=== PATIENT | male | born 1960 | race Caucasian/White ===

== ENCOUNTER 2018-05-13 13:40 | Outpatient (CLI) | payer MEDICAID, SELFPAY ==
--- NOTE | 2018-05-13 11:28 | DI.RAD_ITS ---
SYMPTOMS/DIAGNOSIS: CHRONIC RIGHT HIP PAIN, M25.551, OTHER CHRONIC PAIN, G89.29 RIGHT HIP AND PELVIS: Two views. No priors. There is mild joint space narrowing of the right hip joint and mild spurring of the right femur. The joint spaces otherwise are well maintained. The bones are intact and normally mineralized. The sacroiliac joints and symphysis pubis are intact. There is partial lumbarization of the SI segment of the sacrum. The soft tissues are unremarkable. 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
== END 2018-05-13 14:00 ==
PROVIDERS: PCP Family Medicine; Visit Provider Family Medicine
DX: M25.551 Pain in right hip (principal); M16.11 Unilateral primary osteoarthritis, right hip; G89.29 Other chronic pain
CPT/HCPCS: 73502

== ENCOUNTER 2018-05-26 11:11 | Outpatient (CLI) | payer MEDICAID, SELFPAY ==
[2018-05-26 13:01] LABS: Abs Immature Grans 0.01 k/cumm (0.0-0.09); Absolute Basophil Count 0.02 k/cumm (0.0-0.2); Absolute Eosinophil Count 0.19 k/cumm (0.0-0.7); Absolute Lymphocyte Count 1.83 k/cumm (1.2-3.4); Absolute Monocyte Count 0.65 k/cumm (0.11-0.7); Absolute Neutrophil Count 3.34 k/cumm (1.2-6.7); Basophils % 0.3; Eosinophils % 3.1; HCT 42.3 % (40.0-50.0); Immature Grans % 0.2; Lymphocytes % 30.3; Mean Corp. HGB Concentration 33.1 g/dL (32.0-36.0); Mean Corpuscular Volume 96.8 fL (80-95); Mean Platelet Volume 9.4 fL (8.0-11.0); Monocytes % 10.8; Neutrophils % 55.3; Platelet Count 224 x1000/uL (130-400); RBC 4.37 m/cumm (4.50-6.00); RBC Distribution Width 13.3 % (11.8-14.1); White Blood Cell Count 6.04 k/cumm (4.4-10.8)
[2018-05-26 13:40] LABS: ALT 30 U/L (12-78); AST 22 U/L (15-37); Albumin 3.9 g/dL (3.4-5.0); Alkaline Phosphatase 95 U/L (46-116); Anion Gap 4.6 mmol/L (3-11); BUN 21 mg/dL (7-18); Bilirubin, Total 0.4 mg/dL (0.2-1.0); CO2 30.4 mmol/L (21.0-32.0); Calcium 9.6 mg/dL (8.5-10.1); Chloride 103 mmol/L (98-107); Glucose 90 mg/dL (70-100); Sodium 138 mmol/L (136-145); Total Protein 7.3 g/dL (6.4-8.2)
== END 2018-05-26 11:31 ==
PROVIDERS: PCP Family Medicine; Visit Provider Family Medicine
DX: M54.16 Radiculopathy, lumbar region (principal)
CPT/HCPCS: 36415; 80053; 85025

== ENCOUNTER 2018-05-28 10:29 | Outpatient (CLI) | payer MEDICAID, SELFPAY ==
[2018-05-28 12:51] LABS: Potassium 4.3 mmol/L (3.5-5.1)
== END 2018-05-28 10:49 ==
PROVIDERS: Family Medicine; PCP Family Medicine; Visit Provider Family Medicine
DX: I10 Essential (primary) hypertension (principal)
CPT/HCPCS: 84132

== ENCOUNTER 2018-06-05 11:41 | Emergency (ER) | payer MEDICAID, SELFPAY ==
[2018-06-05 11:53] VITALS: BP 161/106; PULSE 63; RESP 18; TEMP 36.8; O2SAT 98
--- NOTE | 2018-06-05 12:21 | W.ED.GENAD ---
Discharge Plan Disposition Patient Disposition: HOME Discharge Details Chief Complaint: Vascular Clinical Impression: Effusion of right knee Primary Care Provider: Petros Basurto ED Provider: Yan Gramajo Home Meds and New Rx's Prescriptions: No Action hydrocodone-acetaminophen 5-325 mg tablet 1 tab PO Q6H PRN (Reason: pain) Qty: 24 RF: 0 Discharge Instructions Instructions: Swollen Knee Joint (ED) Additional Instructions: Please use marisa wrap and crutches. You may bear weight as tolerated. Please follow-up with orthopedics. Call for an appointment. Please contact your primary care physician to arrange follow-up. Return to the ER for any worsening or new concerning symptoms. Referrals: [facility] [Provider Group] Petros Basurto [Primary Care Provider] - Discharge Data Discharge Date/Time-TO BE ENTERED AT DEPARTURE: 06/05/18 16:09 Medical Decision Making 57-year-old male with nontraumatic effusion of right knee. X-ray of the right knee reviewed and interpreted by radiology: joint effusion with no sam abnormality. Knee aspiration performed and 74 mL of fluid removed. Sterile dressing applied. Labs reviewed: nl esr, crp and no leukocytosis. Joint fluid has 1265 WBCs. Patient was advised to follow-up with orthopedics. I encouraged him to return for any worsening or new concerning symptoms. HPI General Mode of arrival: ambulatory. Date/Time Provider Initiated Documentation: 06/05/18 12:01. Limitations to Documentation: no limitations. Information obtained by: patient. 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 Patient notes that symptoms started a few weeks ago and were less focal at onset. He was seen by his primary care physician for right leg who performed a hip x-ray that was unremarkable. He is continued to have symptoms and much more localized now in his knee. Pain is moderate to severe with certain positions and activities. Patient denies trauma. He has associated swelling of the knee. No fevers. No rash. Patient notes remote right knee cartilage surgery as a 13yo. Does not have more information on this. Related Data Home Medications Medication Instructions Recorded Confirmed hydrocodone 5 mg-acetaminophen 325 1 tab PO Q6H PRN #24 tab 05/26/18 06/05/18 mg tablet Previous Rx's Medication Instructions Recorded hydrocodone 5 mg-acetaminophen 325 1 tab PO Q6H PRN #24 tab 05/26/18 mg tablet Allergies Allergy/AdvReac Type Severity Reaction Status Date / Time No Known Allergies Allergy Unverified 06/05/18 12:00 General Stated Complaint: Vascular YVES: 3 Review of Systems Review of Systems All systems reviewed & are unremarkable except as noted in HPI and below Constitutional Denies fever(s) Musculoskeletal Reports as per HPI Neurologic Comments: focal area of numbness rt lateral knee PFSH Family History Mother Depression Father Essential hypertension Mental disorder Sister No problems noted. Grandfather Neoplasm Grandfather Neoplasm Grandmother Cerebrovascular accident Grandmother Heart disease Sister No problems noted. Sister No problems noted. Son No problems noted. Daughter No problems noted. 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 pets and animals: Yes pets and animals: cat(s) and dog(s) frequency: daily Smoking/Tobacco Use Status: Current-Occasional tobacco type: cigars alcohol intake: current alcohol intake frequency: a few times a week substance use type: does not use cherry/sikhism: Yarsanism special cherry needs: No Exam Cardio Rate: regular rate Rhythm: regular rhythm Pulses: dorsalis pedis pulses present on the right Neuro General: alert and awake Other: distal RLE sensation and motor intact Extrem Right lower extremity: knee Details: swelling and other (rt knee with large effusion, some warmth, no erythema, limited ROM secondary to discomfort) Course Vital Signs Temperature 36.8 C 06/05/18 11:53 Pulse 63 06/05/18 11:53 Respiratory Rate 18 06/05/18 11:53 Blood Pressure 161/106 H 06/05/18 11:53 Pulse Oximetry 98 06/05/18 11:53 Temperature 36.8 C 06/05/18 11:53 Temperature Source Skin 06/05/18 11:53 Pulse 63 06/05/18 11:53 Respiratory Rate 18 06/05/18 11:53 Respiratory Effort 06/05/18 11:58 Blood Pressure 161/106 H 06/05/18 11:53 Blood Pressure Position Sitting 06/05/18 11:53 Pulse Oximetry 98 06/05/18 11:53 Oxygen Delivery Method Room Air 06/05/18 11:53 Oxygen Flow Rate 0 06/05/18 11:53 Pain Level 8 06/05/18 11:53 Procedures Joint Aspiration/Injection Joint Asp./Inject. 1: Time Out Performed: Yes Side of body: right Joint Aspirated: knee Skin Prep: Povidone-Iodine1% Local Anesthetic: Lidocaine 1% Amount of anesthesia used (mL): 2 Needle Size Used: 18G Fluid Obtained: clear (yellow) Total fluid obtained (mL): 74 Patient Tolerated Procedure: well Complications: none
[2018-06-05] MEDS: Lidocaine/Epinephri/Tetracaine Topical Gel 3 ML (13:00)
[2018-06-05 13:24] LABS: Abs Immature Grans 0.01 k/cumm (0.0-0.09); Absolute Basophil Count 0.01 k/cumm (0.0-0.2); Absolute Eosinophil Count 0.14 k/cumm (0.0-0.7); Absolute Lymphocyte Count 1.63 k/cumm (1.2-3.4); Absolute Monocyte Count 0.63 k/cumm (0.11-0.7); Absolute Neutrophil Count 3.63 k/cumm (1.2-6.7); Basophils % 0.2; Eosinophils % 2.3; HCT 42.9 % (40.0-50.0); HGB 14.4 g/dL (13.5-17.5); Immature Grans % 0.2; Lymphocytes % 26.9; Mean Corp. HGB Concentration 33.6 g/dL (32.0-36.0); Mean Corpuscular Hemoglobin 32.1 pg (27.0-33.0); Mean Corpuscular Volume 95.8 fL (80-95); Monocytes % 10.4; Platelet Count 224 x1000/uL (130-400); RBC 4.48 m/cumm (4.50-6.00); RBC Distribution Width 13.2 % (11.8-14.1); White Blood Cell Count 6.05 k/cumm (4.4-10.8)
[2018-06-05 13:37] LABS: Anion Gap 6.7 mmol/L (3-11); BUN 25 mg/dL (7-18); C-Reactive Protein 0.23 mg/dL (0.0-0.3); CO2 31.3 mmol/L (21.0-32.0); CREATININE 0.91 mg/dL (0.70-1.30); Calcium 9.6 mg/dL (8.5-10.1); Chloride 101 mmol/L (98-107); Glucose 106 mg/dL (70-100); Potassium 4.8 mmol/L (3.5-5.1); Sodium 139 mmol/L (136-145)
--- NOTE | 2018-06-05 14:02 | DI.RAD_ITS ---
SYMPTOMS/DIAGNOSIS: PAIN, EFFUSION RIGHT KNEE: No bony or joint abnormality is demonstrated. A joint effusion is identified.
[2018-06-05] MEDS: Lidocaine 4% Cream 5 GM TUBE TP (14:05)
[2018-06-05 14:35] LABS: ESR 10 MM/HR (1-20)
[2018-06-05 15:28] LABS: Clarity CLEAR; Mononuclear Cells 94 % (0-0); Nucleated Cells 1265 /MM3 (0-0); Polynuclear Cells 6 % (0-0); Source R KNEE
--- NOTE | 2018-06-05 15:45 | ED.GENADUL_ITS ---
Discharge Plan Disposition Patient Disposition: HOME Discharge Details Chief Complaint: Vascular Clinical Impression: Effusion of right knee Primary Care Provider: Petros Basurto ED Provider: Yan Gramajo Home Meds and New Rx's Prescriptions: No Action hydrocodone-acetaminophen 5-325 mg tablet 1 tab PO Q6H PRN (Reason: pain) Qty: 24 RF: 0 Discharge Instructions Instructions: Swollen Knee Joint (ED) Additional Instructions: Please use marisa wrap and crutches. You may bear weight as tolerated. Please follow-up with orthopedics. Call for an appointment. Please contact your primary care physician to arrange follow-up. Return to the ER for any worsening or new concerning symptoms. Referrals: [facility] [Provider Group] Petros Basurto [Primary Care Provider] - Discharge Data Discharge Date/Time-TO BE ENTERED AT DEPARTURE: 06/05/18 16:09 Medical Decision Making 57-year-old male with nontraumatic effusion of right knee. X-ray of the right knee reviewed and interpreted by radiology: joint effusion with no sam abnormality. Knee aspiration performed and 74 mL of fluid removed. Sterile dressing applied. Labs reviewed: nl esr, crp and no leukocytosis. Joint fluid has 1265 WBCs. Patient was advised to follow-up with orthopedics. I encouraged him to return for any worsening or new concerning symptoms. HPI General Mode of arrival: ambulatory . Date/Time Provider Initiated Documentation: 06/05/18 12:01 . Limitations to Documentation: no limitations . Information obtained by: patient . 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 Patient notes that symptoms started a few weeks ago and were less focal at onset. He was seen by his primary care physician for right leg who performed a hip x-ray that was unremarkable. He is continued to have symptoms and much more localized now in his knee. Pain is moderate to severe with certain positions and activities. Patient denies trauma. He has associated swelling of the knee. No fevers. No rash. Patient notes remote right knee cartilage surgery as a 13yo. Does not have more information on this. Related Data Home Medications Medication Instructions Recorded Confirmed hydrocodone 5 mg-acetaminophen 325 1 tab PO Q6H PRN #24 tab 05/26/18 06/05/18 mg tablet Previous Rx's Medication Instructions Recorded hydrocodone 5 mg-acetaminophen 325 1 tab PO Q6H PRN #24 tab 05/26/18 mg tablet Allergies Allergy/AdvReac Type Severity Reaction Status Date / Time No Known Allergies Allergy Unverified 06/05/18 12:00 General Stated Complaint: Vascular YVES: 3 Review of Systems Review of Systems All systems reviewed & are unremarkable except as noted in HPI and below Constitutional Denies fever(s) Musculoskeletal Reports as per HPI Neurologic Comments: focal area of numbness rt lateral knee PFSH Family History Mother Depression Father Essential hypertension Mental disorder Sister No problems noted. Grandfather Neoplasm Grandfather Neoplasm Grandmother Cerebrovascular accident Grandmother Heart disease Sister No problems noted. Sister No problems noted. Son No problems noted. Daughter No problems noted. 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 pets and animals: Yes pets and animals: cat(s) and dog(s) frequency: daily Smoking/Tobacco Use Status: Current-Occasional tobacco type: cigars alcohol intake: current alcohol intake frequency: a few times a week substance use type: does not use cherry/sabianist: Mormon special cherry needs: No Exam Cardio Rate: regular rate Rhythm: regular rhythm Pulses: dorsalis pedis pulses present on the right Neuro General: alert and awake Other: distal RLE sensation and motor intact Extrem Right lower extremity: knee Details: swelling and other (rt knee with large effusion, some warmth, no erythema, limited ROM secondary to discomfort) Course Vital Signs Temperature 36.8 C 06/05/18 11:53 Pulse 63 06/05/18 11:53 Respiratory Rate 18 06/05/18 11:53 Blood Pressure 161/106 H 06/05/18 11:53 Pulse Oximetry 98 06/05/18 11:53 Temperature 36.8 C 06/05/18 11:53 Temperature Source Skin 06/05/18 11:53 Pulse 63 06/05/18 11:53 Respiratory Rate 18 06/05/18 11:53 Respiratory Effort 06/05/18 11:58 Blood Pressure 161/106 H 06/05/18 11:53 Blood Pressure Position Sitting 06/05/18 11:53 Pulse Oximetry 98 06/05/18 11:53 Oxygen Delivery Method Room Air 06/05/18 11:53 Oxygen Flow Rate 0 06/05/18 11:53 Pain Level 8 06/05/18 11:53 Procedures Joint Aspiration/Injection Joint Asp./Inject. 1: Time Out Performed: Yes Side of body: right Joint Aspirated: knee Skin Prep: Povidone-Iodine1% Local Anesthetic: Lidocaine 1% Amount of anesthesia used (mL): 2 Needle Size Used: 18G Fluid Obtained: clear (yellow) Total fluid obtained (mL): 74 Patient Tolerated Procedure: well Complications: none
== END 2018-06-05 16:09 | disposition home or self-care (01) ==
PROVIDERS: Emergency Provider Student in an Organized Health Care Education/Training Program; PCP Family Medicine
DX: M25.461 Effusion, right knee (principal)
CPT/HCPCS: 20610; 36415; 73562; 80048; 85652; 85025; 86140; 87070; 87205; 89051; 89060; E0114

== ENCOUNTER 2020-11-22 12:59 | Outpatient (REF) | payer MEDICAID, SELFPAY ==
[2020-11-22 20:53] LABS: Calculated LDL 169 mg/dL (<100); Cholesterol 292 mg/dL (<200); Glucose 89 mg/dL (74-106); HDL Cholesterol 114 mg/dL (40-60); Triglyceride 45 mg/dL (<150)
[2020-11-23 17:13] LABS: PSA, Screening 1.8 ng/mL (0.0-4.5)
== END 2020-11-22 13:00 | disposition home or self-care (01) ==
LOC: LBN 12:59
PROVIDERS: PCP Family Medicine; Visit Provider Family Medicine
DX: E78.5 Hyperlipidemia, unspecified (principal); R73.9 Hyperglycemia, unspecified; Z12.5 Encounter for screening for malignant neoplasm of prostate
CPT/HCPCS: 80061; 82947; 84153

== ENCOUNTER 2022-03-02 01:26 | Outpatient (CLI) | payer MEDICAID, SELFPAY ==
--- OUTSIDE RECORDS SUMMARY | 2022-03-02 01:28 | XMS_ITS | Encounter Summary ---
:1960 Author Organization [facility] Address [address] [place] [address] Care Team Providers Name Role Phone Unknown, Provider Primary Care Provider Encounter Details Date Type Department Care Team Description 08/07/2011 Results Only [facility] Armin Murrieta, DO [phone] [facility] [place], [place] [id number] (Wo rk) Social History Tobacco Use Types Packs/Day Years Used Date Never Assessed Sex Assigned at Date Recorded Not on file documented as of this encounter Plan of Treatment Not on filedocumented as of this encounter Procedures Procedure Name Priority Date/Time Associated Diagnosis Comme [facility] SURGICAL PATHOLOGY Routine 08/07/2011 0:00 EST Re sults for this procedure are i n the results section. documented in this encounter Results SURGICAL PATHOLOGY (08/07/2011 0:00 EST) Pathology Report: SURGICAL PATHOLOGY REPORT [facility] Reports generated via electronic interface contain salomon ginal data; LAB however they are lacking the format of the original re port. Caution should be taken when reading/interpreting unfo rmatted reports. Name: ? DONYA MCNAIR ? Accession #: ? [id number] ? : ? 1960 (Age: 50) ??M ? Collect Date: ? 08/07/2011 ? Location: ? [facility] ? Receive Date: ? 011 ? Provider: ARMIN MURRIETA DO Copy to: MANDO SIMON MD ? Final Pathologic Diagnosis: ? Skin of ear, left, punch biopsy: - Irregular epidermal hyperplasia with associated infl ammation and reactive changes. ??See ??microscopic and comment. Comment: ? The histologic featur es are relatively non-specific, despite deeper levels. The features are predominantly reactive/reparative in nature. ??Present is epidermal hyperplasia with a ssociated inflammation. ??Well- developed atypia is not identified. ??There is no evidence of an inf iltrative neoplasm. ??A well- developed channel, like that seen in the context of chondrodermatitis nodularis helicis, is not present. ??C linical correlation is recommended. ??(Dr. Hardy)/tiffanie Microscopic Description: ? Sections consist of a punch biopsy of skin. ??T here is compacted orthokeratosis with parakera tosis. ??The epidermis shows irregular hyperplasia. There is mild nuclear enlargement, which is interpreted as reactive in nature. Within the dermis, is dense mixed inflammation with gr anulation tissue and erythrocyte extravasation. ? ?Deeper levels have been examined. ??(Dr. Hardy)/tiffanie Document reviewed and electronically signed by: KATERINA HARDY MD Report ??Date: 08/10/2011 15:50 By the signature above, the attending physician certif ies that he/she has personally conducted a gross and/or microscopic examin ation of the described specimens and rendered or confirmed the above diagnosi s. Specimen(s) Received: ? Left ear tissue Clinical History: ? L ear tissue for pathology; Clinical diagnosis code: 238.2 Gross Description: ? Received in formalin labelled Natalee, Donya and L ear tissue is an ovoid punch biopsy of white and smooth, focall y rader and crusted skin measuring 0.4 x 0.3 cm in diameter and 0.3 c m in thickness. ??The specimen is submitted intact in a single cassette. (Gregorio Burroughs)/mpl End of Report Specimen Performing Organization Address City/State/ZIP Code Phon e Number [facility] [address] [place] [address] SERVICES [facility] [address] [place] [address] documented in this encounter Visit Diagnoses Not on filedocumented in this encounter Care Teams Esthetician Spa Relationship Specialty Start Date End Date Unknown, Provider, PCP - General 08/08/11 documented as of this encounter
--- OUTSIDE RECORDS SUMMARY | 2022-03-02 01:28 | XMS_ITS | Clinical Summary ---
:1960 Author Organization [facility] Address [address] [place] [address] Care Team Providers Name Role Phone Unknown, Provider Primary Care Provider Social History Tobacco Use Types Packs/Day Years Used Date Never Assessed Sex Assigned at Date Recorded Not on file Plan of Treatment Health Maintenance Due Date Last Done Comments Hepatitis C Screen 1960 COVID-19 Vaccine (1) 1965 Insurance Payer Benefit Plan Subscriber ID Effective Phone Address Typ e / Group Dates MEDICAID ACO MEDICAID ACO [id number] 2019-Pres [phone] [address] [place] [address] [place] [address] Care Teams Prevention Rn Relationship Specialty Start Date End Date Unknown, Provider, PCP - General 08/08/11
[2022-03-02 12:42] LABS: Hemoglobin A1C 5.6 % (<5.7)
[2022-03-02 12:49] LABS: Calculated LDL 180 mg/dL (<100); Cholesterol 267 mg/dL (<200); HDL Cholesterol 72 mg/dL (40-60); Triglyceride 76 mg/dL (<150)
== END 2022-03-02 01:27 | disposition home or self-care (01) ==
LOC: LOS 01:26
PROVIDERS: PCP Family Medicine; Visit Provider Family Medicine
DX: E78.5 Hyperlipidemia, unspecified (principal); R73.9 Hyperglycemia, unspecified
CPT/HCPCS: 36415; 80061; 83036

== ENCOUNTER 2022-03-05 02:49 | Outpatient (RCR) | payer MEDICAID, SELFPAY ==
--- NOTE | 2022-03-05 10:30 | HOLTER_ITS ---
APPROVED REPORT Conclusion This is a 48-hour Holter monitor, reportedly ordered for arrhythmias Predominant rhythm was sinus with an average heart rate of 77. Minimum was 59, maximum 108 There were very rare isolated atrial and ventricular ectopic beats There was no atrial fibrillation, no high-grade AV block, no pauses greater than 3 seconds No patient symptoms were reported
== END 2022-03-18 23:59 | disposition home or self-care (01) ==
LOC: RT 02:49
PROVIDERS: PCP Family Medicine; Visit Provider Family Medicine
DX: I49.8 Other specified cardiac arrhythmias (principal)
CPT/HCPCS: 93225; 93226

== ENCOUNTER → 2022-07-10 02:16 | Outpatient (CLI) | payer MEDICAID, SELFPAY ==
--- NOTE | 2022-07-10 07:45 | DI.RAD_ITS ---
Exam(s) XR HIP PELVIS ADULT BL EXAM: XR HIP PELVIS ADULT BL CLINICAL HISTORY: verito hip pain,m25.551,m25.552. TECHNIQUE: 2D digital imaging was performed of the pelvis and bilateral hips. Three images were obt ained. AP pelvis and lateral views of both hips were obtained. COMPARISON: CR XR hip RT complete AP pelvis from 05/13/2018 FINDINGS: BONES: No acute fracture is present. No bony destructive lesion is seen. JOINTS: No dislocation present. Degenerative changes are seen in the hips bilaterally with joint spac e narrowing and periarticular spurring. The sacroiliac joints and symphysis pubis are unremarkable. SOFT TISSUE: Normal. IMPRESSION: Mild degenerative changes of the hips, left greater than right. DATA REPOSITORY: RADIATION DOSE DELIVERED:
== END ==
PROVIDERS: PCP Family Medicine; Visit Provider Family Medicine
DX: M16.0 Bilateral primary osteoarthritis of hip (principal)
CPT/HCPCS: 73521

== ENCOUNTER 2022-08-16 01:40 | Outpatient (CLI) | payer MEDICAID, SELFPAY ==
--- NOTE | 2022-08-16 07:00 | DI.US_ITS ---
Exam(s) US HERNIA EXAM: US HERNIA CLINICAL HISTORY: LLQ pain,? HERNIA,R10.814. TECHNIQUE: Ultrasound was performed using standard protocol. COMPARISON: No exams were available for comparison FINDINGS: Sonographic assessment utilizing grayscale and color Doppler imaging was performed and targeted to th e area of clinical concern. Submitted images do not reveal evidence of an abdominal wall mass or hernia in the area scanned. IMPRESSION: Negative for hernia DATA REPOSITORY:
== END 2022-08-16 02:00 ==
LOC: DI 01:40
PROVIDERS: PCP Family Medicine; Visit Provider Nurse Practitioner Family
DX: R10.814 Left lower quadrant abdominal tenderness (principal)
CPT/HCPCS: 76857

== ENCOUNTER 2023-01-25 01:03 | Outpatient (CLI) | payer MEDICAID, SELFPAY ==
[2023-01-25 13:25] LABS: CREATININE 0.8 mg/dL (0.70-1.30); Calculated LDL 183 mg/dL (<100); Cholesterol 295 mg/dL (<200); Estimated GFR 100.06 (mL/min/1.73m2); HDL Cholesterol 102 mg/dL (40-60); Potassium 4.3 mmol/L (3.5-5.1); Triglyceride 52 mg/dL (<150)
== END 2023-01-25 01:04 | disposition home or self-care (01) ==
LOC: LOS 01:03
PROVIDERS: PCP Family Medicine; Visit Provider Family Medicine
DX: I10 Essential (primary) hypertension (principal); E78.5 Hyperlipidemia, unspecified
CPT/HCPCS: 36415; 80061; 82565; 84132